=== PATIENT | male | born 1995 | race Hispanic/Latino ===

== ENCOUNTER 2024-01-14 12:44 | Emergency (ER) | payer SELFPAY ==
[~2024-01-14] VITALS: Ht 165.1 cm; Wt 84.0 kg
[2024-01-14 12:49] VITALS: BP 131/86
[2024-01-14 13:00] VITALS: BP 137/70
[2024-01-14 13:02] VITALS: BP 137/70
== END 2024-01-14 13:10 | disposition home or self-care (01) | DRG 948 ==
LOC: ED 12:44
DX: R53.83 Other fatigue (principal)